=== PATIENT | female | born 1955 | race African-American/Black ===

== ENCOUNTER 2018-03-18 12:56 | Emergency (ER) | payer OTHER ==
--- NOTE | 2018-03-18 15:28 | ER Document Report ---
ED Medical Screen (RME) - General Chief Complaint: Abdominal Pain >50 Stated Complaint: VOMITING BLOOD Time Seen by Provider: 03/18/18 15:26 Notes: Patient says that she awakened about 7:00 this morning and shortly after that was headed to the bathroom when she suddenly vomited a nely red appearing vomitus and it went everywhere. She then subsequently had to more black vomitus episodes. She also had pain across the mid abdomen. Also having diarrhea that was black, about 4 times. Still remains nauseated. Has never vomited up anything that looked like danisha blood. Has not had any fever. Has not taken any Pepto-Bismol recently. Patient has had a lower endoscopy about 3 years ago. She was told in the past she might have an ulcer and has taken antacid medications, but does not think she is taking any currently. PMH: Hypertension, TRAVEL OUTSIDE OF THE [place] IN LAST 30 DAYS: No - Related Data Allergies/Adverse Reactions: cetirizine [From [facility]] Adverse Reaction (Intermediate, Verified 03/18/18 15:26 ) Nausea Past Medical History - Social History Chew tobacco use (# tins/day): No Frequency of alcohol use: Rare Drug Abuse: None - Past Medical History Cardiac Medical History: Reports: Hx Atrial Fibrillation, Hx Hypercholesterolemia, Hx Hypertension Neurological Medical History: Denies: Hx Seizures Renal/ Medical History: Denies: Hx Peritoneal Dialysis GI Medical History: Reports: Hx Gastroesophageal Reflux Disease Past Surgical History: Reports: Hx Breast Surgery - BIOPSY, Hx Tubal Ligation. Denies: Hx Hysterectomy - Immunizations Hx Diphtheria, Pertussis, Tetanus Vaccination: No Physical Exam - Vital signs Vitals: Temp Pulse Resp BP Pulse Ox 97.7 F 82 24 H 106/69 100 03/18/18 13:31 03/18/18 13:31 03/18/18 13:31 03/18/18 13:31 03/18/18 13:31 Course - Vital Signs Vital signs: Temp Pulse Resp BP Pulse Ox 97.7 F 82 24 H 106/69 100 03/18/18 13:31 03/18/18 13:31 03/18/18 13:31 03/18/18 13:31 03/18/18 13:31 Doctor's Discharge - Discharge Referrals: OC BONE MD [Primary Care Provider] - Follow up as needed
[2018-03-18] MEDS ORDERED: ONDANSETRON 4 MG TAB.RAPDIS PO ONE ×2 (15:30→19:44)
[2018-03-18] MEDS ORDERED: FAMOTIDINE 20 MG TABLET PO ONE (15:32)
[2018-03-18 16:17] LABS: ABSOLUTE LYMPHOCYTES (AUTO) 1.9 10^3/uL (0.5-4.7); ABSOLUTE MONOCYTES (AUTO) 0.5 10^3/uL (0.1-1.4); ABSOLUTE NEUT (AUTO) 7.3 10^3/uL (1.7-8.2); BASOPHILS % (AUTO) 0.5 % (0-2); EOSINOPHILS % (AUTO) 0.1 % (0-6); HEMATOCRIT 29.4 % (36.0-47.0); HEMOGLOBIN 9.6 g/dL (12.0-15.5); LYMPHOCYTES % (AUTO) 19.9 % (13-45); MEAN CORPUSCULAR HEMOGLOBIN 26.5 pg (27.0-33.4); MEAN CORPUSCULAR HGB CONC 32.7 g/dL (32.0-36.0); MEAN CORPUSCULAR VOLUME 81 fl (80-97); MONOCYTES % (AUTO) 4.9 % (3-13); PLATELET COUNT 175 10^3/uL (150-450); RED BLOOD COUNT 3.64 10^6/uL (3.72-5.28); RED CELL DISTRIBUTION WIDTH 14.9 % (11.5-14.0); SEGMENTED NEUTROPHILS % (AUTO) 74.6 % (42-78); TOTAL CELLS COUNTED % (AUTO) 100 %; WHITE BLOOD COUNT 9.8 10^3/uL (4.0-10.5)
[2018-03-18 16:32] LABS: INTERNATIONAL RATION (INR) 0.98; PROTHROMBIN TIME 13.5 SEC (11.4-15.4)
[2018-03-18 16:37] LABS: ALANINE AMINOTRANSFERASE 37 U/L (9-52); ALBUMIN 4.4 g/dL (3.5-5.0); ALKALINE PHOSPHATASE 64 U/L (38-126); ANION GAP 10 (5-19); ASPARTATE AMINO TRANSFERASE 27 U/L (14-36); BILIRUBIN,DIRECT 0.2 mg/dL (0.0-0.4); BILIRUBIN,TOTAL 0.3 mg/dL (0.2-1.3); BLOOD UREA NITROGEN 37 mg/dL (7-20); CALCIUM 10.3 mg/dL (8.4-10.2); CARBON DIOXIDE 26 mmol/L (22-30); CHLORIDE 108 mmol/L (98-107); GLUCOSE 87 mg/dL (75-110); POTASSIUM 4.3 mmol/L (3.6-5.0); SODIUM 144.4 mmol/L (137-145); TOTAL PROTEIN 7.4 g/dL (6.3-8.2)
--- NOTE | 2018-03-18 19:48 | ER Document Report ---
ED General - General Chief Complaint: Abdominal Pain >50 Stated Complaint: VOMITING BLOOD Time Seen by Provider: 03/18/18 15:26 TRAVEL OUTSIDE OF THE [place] IN LAST 30 DAYS: No - HPI Notes: Patient is a 62-year-old female with a history of hypertension who presents to the ED complaining of having nausea and vomiting this morning with diarrhea. Patient states that she did have 1-2 episodes of scant blood in her sputum. Patient states that her stool has been black as well. Patient states that she does have weakness associated. Patient states that she has not had any vomiting since this morning, but does continue to have some nausea. Patient states that she does have some mid abdominal cramping, but currently does not have any pain. Patient states that she has not eaten or drink anything today. She is urinating normally. Patient states that she has had possible bleeding ulcer in the past and her last colonoscopy/endoscopy was about 3 years ago. Denies any headache, fever, neck pain, URI, sore throat, chest pain, palpitations, syncope, cough, shortness of breath, wheeze, dyspnea, diarrhea, urinary retention, dysuria, hematuria, back pain, loss of control of bowel or bladder, numbness/tingling, muscle paralysis/weakness, or rash. - Related Data Allergies/Adverse Reactions: cetirizine [From [facility]] Adverse Reaction (Intermediate, Verified 03/18/18 15:26 ) Nausea Past Medical History - Social History Smoking Status: Former Smoker Chew tobacco use (# tins/day): No Frequency of alcohol use: Rare Drug Abuse: None Family History: Reviewed & Not Pertinent Patient has suicidal ideation: No Patient has homicidal ideation: No - Past Medical History Cardiac Medical History: Reports: Hx Atrial Fibrillation, Hx Hypercholesterolemia, Hx Hypertension Neurological Medical History: Denies: Hx Seizures Renal/ Medical History: Denies: Hx Peritoneal Dialysis GI Medical History: Reports: Hx Gastroesophageal Reflux Disease Past Surgical History: Reports: Hx Breast Surgery - BIOPSY, Hx Tubal Ligation. Denies: Hx Hysterectomy - Immunizations Hx Diphtheria, Pertussis, Tetanus Vaccination: No Review of Systems - Review of Systems -: Yes All other systems reviewed and negative Physical Exam - Vital signs Vitals: Temp Pulse Resp BP Pulse Ox 97.7 F 82 24 H 106/69 100 03/18/18 13:31 03/18/18 13:31 03/18/18 13:31 03/18/18 13:31 03/18/18 13:31 - Notes Notes: PHYSICAL EXAMINATION: GENERAL: Well-appearing, well-nourished and in no acute distress. A&Ox4. Answers questions appropriately. HEAD: Atraumatic, normocephalic. EYES: Pupils equal round and reactive to light, extraocular movements intact, sclera anicteric, conjunctiva are normal. ENT: Nares patent and without discharge. oropharynx clear without exudates. No tonsilar hypertrophy or erythema. Moist mucous membranes. NECK: Normal range of motion, supple without lymphadenopathy LUNGS: Breath sounds clear to auscultation bilaterally and equal. No wheezes rales or rhonchi. HEART: Regular rate and rhythm without murmurs, rubs, gallops. ABDOMEN: Soft, nontender, nondistended abdomen. No guarding, no rebound. No masses appreciated. Normal bowel sounds present. No CVA tenderness bilaterally. Rectal: black stool Musculoskeletal: FROM to passive/active. Strength 5+/5. Extremities: No cyanosis, clubbing, or edema b/l. Peripheral pulses 2+. Capillary refill less than 3 seconds. NEUROLOGICAL: Cranial nerves grossly intact. Normal speech, normal gait. PSYCH: Normal mood, normal affect. SKIN: Warm, Dry, normal turgor, no rashes or lesions noted. Course - Re-evaluation Re-evalutation: 03/18/18 21:22 Call placed to [facility] for UGI transfer as we do not have GI commissioned police officer. Protonix bolus and drip were ordered. Type and screen ordered. 03/18/18 21:[address] Cain who accepted patient and will check on beds and call me back. 03/18/18 22:37 Spoke with [facility] who are working on a bed at this time and believe they may have one open tonight for this patient in IMCU. Pt in agreement with plan. Patient has a hemoglobin of 9.6 and hematocrit of 29. Guaiac was positive with black stool noted on rectal exam. Patient's abdomen is currently soft and nontender. Patient is able to tolerate p.o. at this time, but we will maintain n.p.o. Fluids ordered. 03/19/18 01:04 Transport has arrived for the patient. She has no new concerns or complaints. Vitals are acceptable. Patient stable for transport. - Vital Signs Vital signs: Temp Pulse Resp BP Pulse Ox 97.5 F 69 18 106/66 100 03/18/18 18:39 03/18/18 18:39 03/18/18 18:39 03/18/18 20:51 03/19/18 00:55 - Laboratory Result Diagrams: 03/18/18 22:46 03/18/18 15:57 Laboratory results interpreted by me: 03/18/18 03/18/18 03/18/18 15:57 15:57 22:46 RBC 3.64 L 3.36 L Hgb 9.6 L 9.1 L Hct 29.4 L 27.4 L MCH 26.5 L RDW 14.9 H 15.1 H Chloride 108 H BUN 37 H Calcium 10.3 H Discharge - Discharge Clinical Impression: UGIB (upper gastrointestinal bleed) Condition: Stable Disposition: [facility] Referrals: OC BONE MD [NO LOCAL MD] - Follow up as needed
--- NOTE | 2018-03-18 20:29 | RADIOLOGY REPORT (SQ) ---
EXAM DESCRIPTION: CHEST SINGLE VIEW COMPLETED DATE/TIME: 03/18/2018 7:32 pm REASON FOR STUDY: n/v COMPARISON: AP chest 09/03/2015 EXAM PARAMETERS: NUMBER OF VIEWS: One view. TECHNIQUE: Single frontal radiographic view of the chest acquired. RADIATION DOSE: NA LIMITATIONS: None. FINDINGS: LUNGS AND PLEURA: No opacities, masses or pneumothorax. No pleural effusion. MEDIASTINUM AND HILAR STRUCTURES: No masses. Contour normal. HEART AND VASCULAR STRUCTURES: Heart normal in size. Normal vasculature. BONES: No acute findings. HARDWARE: None in the chest. OTHER: No other significant finding. IMPRESSION: NO ACUTE RADIOGRAPHIC FINDING IN THE CHEST. TECHNICAL DOCUMENTATION: JOB ID: [id number] [employer]- All Rights Reserved Reading location - IP/workstation name: [email or web address]
[2018-03-18] MEDS ORDERED: PANTOPRAZOLE SODIUM 40 MG VIAL IV ONE (21:14)
[2018-03-18] MEDS ORDERED: PANTOPRAZOLE SODIUM 40 MG VIAL IV PRN (21:14)
[2018-03-18] MEDS ORDERED: RINGERS SOLUTION,LACTATED 1,000 ML IV ONE (22:39)
[2018-03-18 22:58] LABS: ABSOLUTE BASOPHILS # (AUTO) 0.1 10^3/uL (0.0-0.2); ABSOLUTE EOSINOPHILS # (AUTO) 0.1 10^3/uL (0.0-0.6); ABSOLUTE MONOCYTES (AUTO) 0.6 10^3/uL (0.1-1.4); ABSOLUTE NEUT (AUTO) 5.5 10^3/uL (1.7-8.2); BASOPHILS % (AUTO) 0.7 % (0-2); EOSINOPHILS % (AUTO) 0.7 % (0-6); HEMATOCRIT 27.4 % (36.0-47.0); HEMOGLOBIN 9.1 g/dL (12.0-15.5); LYMPHOCYTES % (AUTO) 24.8 % (13-45); MEAN CORPUSCULAR HGB CONC 33.1 g/dL (32.0-36.0); MEAN CORPUSCULAR VOLUME 82 fl (80-97); MONOCYTES % (AUTO) 6.8 % (3-13); PLATELET COUNT 151 10^3/uL (150-450); RED BLOOD COUNT 3.36 10^6/uL (3.72-5.28); RED CELL DISTRIBUTION WIDTH 15.1 % (11.5-14.0); TOTAL CELLS COUNTED % (AUTO) 100 %; WHITE BLOOD COUNT 8.2 10^3/uL (4.0-10.5)
[2018-03-19 01:06] VITALS: BP 118/72
== END 2018-03-19 01:36 | disposition short-term general hospital (02) ==
LOC: ER 12:56
DX: K92.2 Gastrointestinal hemorrhage, unspecified (principal); R19.7 Diarrhea, unspecified; I10 Essential (primary) hypertension; R53.1 Weakness; Z87.891 Personal history of nicotine dependence
CPT/HCPCS: 96376; 99285; 96365; 96366; 36415; 85025; 85610; 82272; 80053; 71045; S0119; S0164

== ENCOUNTER 2019-07-15 09:14 | Day surgery (SDC) | payer OTHER ==
[~2019-07-15 09:14] MED LIST: PROPOFOL INJ 200 MG/20 ML VIAL IV ONE
[2019-07-15 10:52] VITALS: BP 116/74
--- NOTE | 2019-07-15 13:07 | EKG REPORT ---
SEVERITY:- NORMAL ECG - SINUS RHYTHM : Confirmed by: Valentin Padilla MD 15-Jul-2019 13:06:36
--- NOTE | 2019-07-15 13:11 | Operative Report ---
Operative Report DATE OF SURGERY: 07/15/19 Operative Report: Risk, benefits and alternatives of the procedure including the risk of bleeding, perforation requiring surgery have been explained to the patient in detail and informed consent has been obtained. Patient is taken back to the endoscopy suite and placed in a left, lateral decubital position. Timeout was called. Propofol medication is administered. A rectal examination is done which did not reveal any masses, tears or fissures. An Olympus videoscope was introduced into the patient's rectum. Scope was then carefully advanced all the way to the cecum. The cecum was identified by the usual anatomical landmarks including the ileocecal valve as well as the appendiceal office. Photodocumentation is obtained. Scope was then sequentially pulled back via the various segments of the colon including the ascending colon, hepatic flexure, transverse colon, splenic flexure, descending colon and finally into the rectosigmoid portions of the colon. Retroflexion maneuvers performed. PREOPERATIVE DIAGNOSIS: Colorectal cancer screening POSTOPERATIVE DIAGNOSIS: Right side colon Inflammation status post biopsy OPERATION: Colonoscopy with biopsy SURGEON: SHALOM BRYANT ANESTHESIA: LMAC TISSUE REMOVED OR ALTERED: As noted above. COMPLICATIONS: None. ESTIMATED BLOOD LOSS: None. INTRAOPERATIVE FINDINGS: As noted above. PROCEDURE: Patient tolerated the procedure well. No immediate postprocedure complications are noted. Patient is discharged in good condition. Discharge date 07/15/2019. Discharge diet: Regular. Discharge activity: Regular. 2 to 3-week follow-up to discuss findings. Patient is instructed to call the office or proceed to the emergency room should there be any further problems or questions. Wait on the pathology. If pathology is negative consider 10-year surveillance colonoscopy.
== END 2019-07-15 10:53 | disposition home or self-care (01) ==
LOC: END 09:14
PROVIDERS: ATTEND Internal Medicine Gastroenterology
DX: Z12.11 Encounter for screening for malignant neoplasm of colon (principal); K52.9 Noninfective gastroenteritis and colitis, unspecified; K64.8 Other hemorrhoids; Z79.82 Long term (current) use of aspirin; Z79.899 Other long term (current) drug therapy; I10 Essential (primary) hypertension; D64.9 Anemia, unspecified; F17.210 Nicotine dependence, cigarettes, uncomplicated
CPT/HCPCS: 45380; 88305 ×2; 93005; 93010; 00812; J2704; 812

== ENCOUNTER 2020-04-18 08:48 | Emergency (ER) | payer OTHER ==
--- NOTE | 2020-04-18 10:06 | ER Document Report ---
ED Medical Screen (RME) - General Chief Complaint: Vaginal Bleeding Stated Complaint: VAGINAL BLEEDING Time Seen by Provider: 04/18/20 10:00 Primary Care Provider: PAUL GEORGE [Primary Care Provider] - Follow up as needed Notes: Patient presents complaining of vaginal bleeding that started 04/03/2020. Patient states that initially she started spotting and recently she has had increased vaginal bleeding. Patient does complain of lower pelvic cramping. Patient states she has not previously had a menstrual cycle for about 10 to 11 years. Patient does report a history of hypertension and has had a previous tubal ligation. Patient denies any blood in her stool. I have greeted and performed a rapid initial assessment of this patient. A comprehensive ED assessment and evaluation of the patient, analysis of test results and completion of the medical decision making process will be conducted by additional ED providers. TRAVEL OUTSIDE OF THE [place] IN LAST 30 DAYS: No - Related Data Allergies/Adverse Reactions: lisinopril Allergy (Intermediate, Verified 04/18/20 09:47) LIPS SWELL Home Medications: htn. metoprolol tart. 100 mg bid. isosorbide 30mg qd. spironolactone 25 mg bid. pantoprazole 40 mg daily. trazodone 50mg qhs Past Medical History - Social History Chew tobacco use (# tins/day): No Frequency of alcohol use: Occasional Drug Abuse: None - Past Medical History Cardiac Medical History: Reports: Hx Atrial Fibrillation, Hx Hypercholesterolemia, Hx Hypertension Denies: Hx Coronary Artery Disease, Hx Heart Attack Pulmonary Medical History: Denies: Hx Asthma, Hx Bronchitis, Hx COPD, Hx Pneumonia Neurological Medical History: Denies: Hx Cerebrovascular Accident, Hx Seizures Renal/ Medical History: Denies: Hx Peritoneal Dialysis GI Medical History: Reports: Hx Gastroesophageal Reflux Disease Musculoskeltal Medical History: Denies Hx Arthritis Past Surgical History: Reports: Hx Breast Surgery - BIOPSY, Hx Tubal Ligation. Denies: Hx Hysterectomy - Immunizations Hx Diphtheria, Pertussis, Tetanus Vaccination: No Physical Exam - Vital signs Vitals: Temp Pulse Resp BP Pulse Ox 98.1 F 66 18 142/79 H 96 04/18/20 08:58 04/18/20 08:58 04/18/20 08:58 04/18/20 08:58 04/18/20 08:58 - General General appearance: Appears well, Alert Notes: Lower pelvic tenderness Course - Vital Signs Vital signs: Temp Pulse Resp BP Pulse Ox 98.1 F 66 18 142/79 H 96 04/18/20 09:47 04/18/20 08:58 04/18/20 08:58 04/18/20 08:58 04/18/20 08:58 Doctor's Discharge - Discharge [facility]errals: [facility] [Primary [facility]] - Follow up as needed
[2020-04-18 10:36] LABS: ABSOLUTE EOSINOPHILS # (AUTO) 0.1 10^3/uL (0.0-0.6); ABSOLUTE LYMPHOCYTES (AUTO) 1.1 10^3/uL (0.5-4.7); ABSOLUTE MONOCYTES (AUTO) 0.3 10^3/uL (0.1-1.4); ABSOLUTE NEUT (AUTO) 3.7 10^3/uL (1.7-8.2); BASOPHILS % (AUTO) 0.4 % (0-2); EOSINOPHILS % (AUTO) 1.5 % (0-6); HEMATOCRIT 38.9 % (36.0-47.0); HEMOGLOBIN 13.2 g/dL (12.0-15.5); LYMPHOCYTES % (AUTO) 21.9 % (13-45); MEAN CORPUSCULAR HEMOGLOBIN 26.8 pg (27.0-33.4); MEAN CORPUSCULAR HGB CONC 33.8 g/dL (32.0-36.0); MEAN CORPUSCULAR VOLUME 79 fl (80-97); MONOCYTES % (AUTO) 5.8 % (3-13); PLATELET COUNT 141 10^3/uL (150-450); RED BLOOD COUNT 4.92 10^6/uL (3.72-5.28); RED CELL DISTRIBUTION WIDTH 15.1 % (11.5-14.0); SEGMENTED NEUTROPHILS % (AUTO) 70.4 % (42-78); TOTAL CELLS COUNTED % (AUTO) 100 %; WHITE BLOOD COUNT 5.2 10^3/uL (4.0-10.5)
[2020-04-18 10:47] LABS: APPEARANCE,URINE CLEAR; BILIRUBIN,URINE NEGATIVE (NEGATIVE); COLOR,URINE YELLOW; GLUCOSE, URINE NEGATIVE (NEGATIVE); KETONES,URINE NEGATIVE (NEGATIVE); LEUKOCYTE ESTERASE,URINE NEGATIVE (NEGATIVE); NITRITE,URINE NEGATIVE (NEGATIVE); PROTEIN,URINE NEGATIVE (NEGATIVE); URINE SPECIFIC GRAVITY 1.018; UROBILINOGEN,URINE NEGATIVE mg/dL (<2.0)
[2020-04-18 10:54] LABS: ALBUMIN 4.4 g/dL (3.5-5.0); ALKALINE PHOSPHATASE 94 U/L (38-126); ANION GAP 11 (5-19); ASPARTATE AMINO TRANSFERASE 37 U/L (14-36); BILIRUBIN,DIRECT 0.2 mg/dL (0.0-0.4); BILIRUBIN,TOTAL 0.5 mg/dL (0.2-1.3); BLOOD UREA NITROGEN 17 mg/dL (7-20); CALCIUM 10.1 mg/dL (8.4-10.2); CARBON DIOXIDE 25 mmol/L (22-30); CHLORIDE 106 mmol/L (98-107); GLUCOSE 120 mg/dL (75-110); POTASSIUM 4.4 mmol/L (3.6-5.0); TOTAL PROTEIN 7.3 g/dL (6.3-8.2)
--- NOTE | 2020-04-18 11:41 | ER Document Report ---
ED GI/ - General Chief Complaint: Vaginal Bleeding Stated Complaint: VAGINAL BLEEDING Time Seen by Provider: 04/18/20 10:00 Primary Care Provider: DORIS,PAUL [Primary Care Provider] - Follow up as needed Notes: 64-year-old woman presents to the emergency department with a complaint of heavy vaginal bleeding. She states that she began having bleeding on Monday after physical therapy for back pain. She states that she had not had any vaginal bleeding for approximately 12 years. She is 65 years old and now post menopausal. She denies pain however, states that the bleeding became heavier last night. States that she went through 3 pads between 2 AM and 6 AM this morning she denies dizziness lightheadedness or syncope. TRAVEL OUTSIDE OF THE [place] IN LAST 30 DAYS: No - Related Data Allergies/Adverse Reactions: lisinopril Allergy (Intermediate, Verified 04/18/20 09:47) LIPS SWELL Home Medications: htn. metoprolol tart. 100 mg bid. isosorbide 30mg qd. spironolactone 25 mg bid. pantoprazole 40 mg daily. trazodone 50mg qhs Past Medical History - General Last Menstrual Period: 10 years ago - Social History Smoking Status: Current Every Day Smoker Chew tobacco use (# tins/day): No Frequency of alcohol use: Occasional Drug Abuse: None Family History: Reviewed & Not Pertinent Patient has homicidal ideation: No - Past Medical History Cardiac Medical History: Reports: Hx Atrial Fibrillation, Hx Hypercholesterolemia, Hx Hypertension Denies: Hx Coronary Artery Disease, Hx Heart Attack Pulmonary Medical History: Denies: Hx Asthma, Hx Bronchitis, Hx COPD, Hx Pneumonia Neurological Medical History: Denies: Hx Cerebrovascular Accident, Hx Seizures Renal/ Medical History: Denies: Hx Peritoneal Dialysis GI Medical History: Reports: Hx Gastroesophageal Reflux Disease Musculoskeletal Medical History: Denies Hx Arthritis Past Surgical History: Reports: Hx Breast Surgery - BIOPSY, Hx Tubal Ligation. Denies: Hx Hysterectomy - Immunizations Hx Diphtheria, Pertussis, Tetanus Vaccination: No Review of Systems - Review of Systems Notes: Constitutional: Negative for fever. HENT: Negative for sore throat. Eyes: Negative for visual changes. Cardiovascular: Negative for chest pain. Respiratory: Negative for shortness of breath. Gastrointestinal: Negative for abdominal pain, vomiting or diarrhea. Genitourinary: See HPI Musculoskeletal: Negative for back pain. Skin: Negative for rash. Neurological: Negative for headaches, weakness or numbness. 10 point ROS negative except as marked above and in HPI. Physical Exam - Vital signs Vitals: Temp Pulse Resp BP Pulse Ox 98.1 F 66 18 142/79 H 96 04/18/20 08:58 04/18/20 08:58 04/18/20 08:58 04/18/20 08:58 04/18/20 08:58 - Notes Notes: PHYSICAL EXAMINATION: Physical Exam: General: Well-nourished well-developed 64-year-old female in no acute distress HEENT: NC/AT, pupils equal round and reactive to light, MM moist,nares clear, oropharynx clear, airway patent Neck: supple, no adenopathy, no masses. Good range of motion Lungs: clear, no wheezing, no rales no rhonchi CVS: Regular rate and rhythm no murmur gallop or rub Abdomen: Soft, active, nontender, no masses, no hepatosplenomegaly Ext: No edema, clubbing or cyanosis. Neuro: Alert and responsive, moving all 4 extremities on command, cranial nerves intact, no focal findings Skin: Intact no open lesions, no rash Course - Re-evaluation Re-evalutation: 04/18/20 14:29 I have contacted the CHOPPER GUN OPERATOR on-call, Dr. Martínez, the patient is scheduled to come into the office on Monday a.m. at 930. Patient will be discharged with oral TXA to help control the bleeding. I have a explained to the patient that she is likely to have biopsy done on that day. - Vital Signs Vital signs: Temp Pulse Resp BP Pulse Ox 98.1 F 66 18 142/79 H 96 04/18/20 09:47 04/18/20 08:58 04/18/20 08:58 04/18/20 08:58 04/18/20 08:58 - Laboratory Result Diagrams: 04/18/20 10:05 04/18/20 10:05 Laboratory results interpreted by me: 04/18/20 04/18/20 04/18/20 10:05 10:05 10:10 MCV 79 L MCH 26.8 L RDW 15.1 H Plt Count 141 L Est GFR (MDRD) Non-Af 55 L Glucose 120 H AST 37 H Urine Blood MODERATE H Urine Ascorbic Acid 20 H - Diagnostic Test Radiology reviewed: Image reviewed, Reports reviewed Radiology results interpreted by me: 04/18/20 14:25 Pelvis Ultrasound 04/18/20 10:05 IMPRESSION: Abnormally thickened and heterogeneous endometrium, in a postmenopausal patient, concerning for endometrial neoplasia. Recommend MANAGER IN HOME consultation and consideration for tissue sampling. Probable posterior fundal intramural uterine fibroid. Unremarkable appearance of the left ovary. Nonvisualization of the right ovary. Discharge - Discharge Clinical Impression: Abnormal vaginal bleeding, Post-menopausal bleeding Disposition: HOME, SELF-CARE Instructions: Vaginal Bleeding ([facility]) Additional Instructions: You are seen in the emergency department today with postmenopausal bleeding. You have been given a prescription for a medication to help to control the bleeding. If your bleeding increases to the point that you are using a pad per hour or if the hemorrhaging is worsening you may return to the emergency department for further evaluation and treatment. I have contacted the CHOPPER GUN OPERATOR on-call Dr. Martínez. She has suggested that you come to the office on Monday at 9:30 AM. Please take the medication as prescribed to help control the bleeding. HOME CARE INSTRUCTIONS & INFORMATION: Thank you for choosing us for your medical needs. We hope you're satisfied with the care you received. After you leave, you must properly care for your problem and, at the same time, observe its progress. Any condition can change. Some illnesses can change rapidly over hours or days. If your condition worsens, return to the Emergency Department or see your physician promptly. ABOUT YOUR X-RAYS AND EKG'S: If you had an EKG or X-rays taken, they have been read by the Emergency Physician. The X-rays and EKG's will also be read by a Radiologist or Lighting Fixture Installer within 24 hours. If discrepancies are noted, you will be notified by telephone. Please be certain the ED has a correct telephone number & address where you can be reached. Also, realize that some fractures or abnormalities do not show up on initial X-rays. If your symptoms continue, see your physician. ABOUT YOUR LABORATORY TEST: If you had laboratory tests, the results have been reviewed by the Emergency Physician. Some test results (for example cultures) may not be available for several days. You will be contacted if any test result shows you need additional treatment. Please be certain the ED has a correct telephone number and address where you can be reached. ABOUT YOUR MEDICATIONS: You will receive instructions on how to take your medicine on the prescription label you receive. Additional information may be provided by the Pharmacy. If you have questions afterwards, call the ED for clarification or further instructions. Some prescribed medications may cause drowsiness. Do not perform tasks such as driving a car or operating machinery without consulting your Pharmacist. If you feel you need a refill of pain medication, your condition will need re-evaluation. Please do not call for a refill of any medication. ABOUT YOUR SIGNATURE: Signature of this document acknowledges to followin. Understanding that you received emergency treatment and that you may be released before al medical problems are known or treated. Please be certain the ED has a correct phone number & address where you can be reached. 2. Acknowledgement that you will arrange for follow-up care as recommended. 3. Authorization for the Emergency Physician to provide information to your follow-up Physician in order to maximize your care. AT ANY TIME, IF YOUR SYMPTOMS CHANGE SIGNIFICANTLY OR WORSEN OR YOU DEVELOP NEW SYMPTOMS, RETURN TO THE EMERGENCY DEPARTMENT IMMEDIATELY FOR RE-EVALUATION. OUR GOAL IS TO PROVIDE EXCELLENT MEDICAL CARE! WE HOPE THAT WE HAVE MET YOUR EXPECTATIONS DURING YOUR EMERGENCY DEPARTMENT VISIT AND THAT YOU FEEL YOU HAVE RECEIVED EXCELLENT CARE! Prescriptions: Tranexamic Acid [Lysteda] 650 mg PO Q8 #12 tablet Referrals: [facility] [Primary Care Provider] - Follow up as needed
--- NOTE | 2020-04-18 12:51 | RADIOLOGY REPORT (SQ) ---
EXAM DESCRIPTION: U/S NON OB PEL W/DOPPLER IMAGES COMPLETED DATE/TIME: 04/18/2020 12:22 pm REASON FOR STUDY: vag bleeding COMPARISON: None. TECHNIQUE: Dynamic and static grayscale images acquired of the pelvis via transvaginal approach and recorded on PACS. Additional selected color Doppler and spectral images recorded. LIMITATIONS: None. FINDINGS: UTERUS: The uterus measures 8 x 4 x 4 cm. In the posterior aspect of the fundal myometriu m, there is a hypoechoic lesion measuring up to 1.9 cm which may represent a fibroid. ENDOMETRIAL STRIPE: The endometrium is thickened, heterogeneous, with some cystic appearing areas wit hin it. It measures up to 1 cm. CERVIX: No nabothian cysts. RIGHT OVARY AND DOPPLER: The right ovary was not visualized. LEFT OVARY AND DOPPLER: Normal size. No worrisome masses. Normal arterial vascular flow without evide nce for torsion. The left ovary measures 1.8 x 1.1 x 1.5 cm. FREE FLUID: None noted. OTHER: No other significant finding. IMPRESSION: Abnormally thickened and heterogeneous endometrium, in a postmenopausal patient, concern ing for endometrial neoplasia. Recommend SECURITY ATTENDANT consultation and consideration for tissue sampling. Probable posterior fundal intramural uterine fibroid. Unremarkable appearance of the left ovary. Nonvisualization of the right ovary. TECHNICAL DOCUMENTATION: JOB ID: [id number] [employer]- All Rights Reserved Rev Reading location - IP/workstation name: [email or web address]
[2020-04-18] MEDS ORDERED: TRANEXAMIC ACID INJ/PF 1,000 MG/10 ML SDV IV STA (13:02)
[2020-04-18] MEDS ORDERED: KETOROLAC TROMETHAMINE INJ/PF 30 MG/1 ML SDV IV ONE (13:04)
[2020-04-18] MEDS ORDERED: NORMAL SALINE 500 ML IV ONE (13:04)
[2020-04-18 15:04] VITALS: BP 120/67
== END 2020-04-18 15:02 | disposition home or self-care (01) ==
LOC: ER 08:48
DX: N95.0 Postmenopausal bleeding (principal); N93.8 Other specified abnormal uterine and vaginal bleeding; R10.2 Pelvic and perineal pain; F17.200 Nicotine dependence, unspecified, uncomplicated; I48.91 Unspecified atrial fibrillation; E78.00 Pure hypercholesterolemia, unspecified; I10 Essential (primary) hypertension
CPT/HCPCS: 99285; 96374; 96375; 36415; 85025; 80053; 81001; 76856; 93976; J1885; J3490